=== PATIENT | male | born 1985 | race Caucasian/White ===

== ENCOUNTER 2017-06-12 13:56 | Emergency (ER) | payer OTHER ==
[2017-06-12 15:53] VITALS: BP 133/74
--- NOTE | 2017-06-12 16:01 | ED ---
Back Pain - HPI Summary HPI Summary: Patient presents to the ED with right-sided sciatic pain since last week. He was seen by his primary care physician who prescribed him 5 days prednisone and methocarbamol 4 times daily. He denies any improvement of symptoms. Pain radiates down the posterior right leg with numbness and tingling. Denies any bladder or bowel dysfunction. He has had a similar episode several years ago after overuse of rowing. He has not tried any heat or massage. He does not have any other back problems at baseline. He is otherwise healthy and is very active. Friend at baseline. Denies any fevers, sweats, chills. Pain is aggravated by sitting and alleviated with standing. - History of Current Complaint Chief Complaint: EDBackInjuryPain Stated Complaint: LOW BACK PAIN Time Seen by Provider: 06/12/17 14:28 Hx Obtained From: Patient Onset/Duration: Sudden Onset Onset/Duration: Started Hours Ago Timing: Constant Back Pain Location: Is Discrete @ - Right-sided sciatic nerve Severity Initially: Moderate Severity Currently: Moderate Pain Intensity: 5 Pain Scale Used: 0-10 Numeric Character: Aching Aggravating Symptom(s): Movement Alleviating Symptom(s): Rest, Position, Heat - Risk Factors AAA Risk Factors: Negative TAD Risk Factors: Negative - She is okay I asked her if she wanted them she wanted a liter of Cauda Equina Risk Factors: Negative Epidural Abscess Risk Factors: Negative - Allergies/Home Medications Allergies/Adverse Reactions: Allergies Allergy/AdvReac Type Severity Reaction Status Date / Time Bee Venom Allergy Swelling Verified 06/12/17 14:05 PMH/Surg Hx/FS Hx/Imm Hx Previously Healthy: Yes Endocrine/Hematology History: Denies: Hx Diabetes Cardiovascular History: Denies: Hx Hypertension, Hx Pacemaker/ICD History: Denies: Hx Renal Disease Sensory History: Denies: Hx Hearing Aid Psychiatric History: Denies: Hx Panic Disorder - Surgical History Surgery Procedure, Year, and Place: RIGHT FOREARM/WRIST REPAIRED 07/2012. RIGHT SCAPHOID REPAIR 2005. HERNIA REPAIR 1991. TONSILS 2003 - Immunization History Immunizations Up to Date: Yes Infectious Disease History: No Infectious Disease History: Denies: Traveled Outside the [place] in Last 30 Days - Social History Occupation: Employed Full-time Lives: With Family Alcohol Use: Weekly Alcohol Amount: 6 Hx Substance Use: No Substance Use Type: Reports: None Hx Tobacco Use: No Smoking Status (MU): Never Smoked Tobacco Review of Systems Constitutional: Negative Positive: Fever, Chills, Fatigue Eyes: Negative Cardiovascular: Negative Respiratory: Negative Positive: no symptoms reported, see HPI Positive: Arthralgia, Myalgia Skin: Negative Psychological: Normal All Other Systems Reviewed And Are Negative: Yes Physical Exam Triage Information Reviewed: Yes Vital Signs On Initial Exam: Initial Vitals Temp Pulse Resp BP Pulse Ox 97.5 F 57 16 123/73 98 06/12/17 14:05 06/12/17 14:05 06/12/17 14:05 06/12/17 14:05 06/12/17 14:05 Vital Signs Reviewed: Yes Appearance: Positive: Well-Appearing, Well-Nourished Skin: Positive: Skin Color Reflects Adequate Perfusion Head/Face: Positive: Normal Head/Face Inspection Eyes: Positive: EOMI, BJ, Conjunctiva Clear Respiratory/Lung Sounds: Positive: Clear to Auscultation, Breath Sounds Present Cardiovascular: Positive: RRR, Pulses are Symmetrical in both Upper and Lower Extremities Musculoskeletal: Positive: Strength/ROM Intact. Negative: Edema Left, Edema Right Neurological: Positive: Speech Normal Psychiatric: Positive: Normal, Affect/Mood Appropriate Diagnostics - Vital Signs Vital Signs Temp Pulse Resp BP Pulse Ox 06/12/17 15:41 98.6 F 55 16 133/74 92 06/12/17 14:05 97.5 F 57 16 123/73 98 - Laboratory Lab Statement: Any lab studies that have been ordered have been reviewed, and results considered in the medical decision making process. Back Pain Course/Dx - Course Course Of Treatment: During the course of treatment the patient is evaluated for acute right-sided low back pain. The pain is discretely located over the sciatic joint and radiates numbness and tingling down the posterior right leg. Denies any bladder or bowel dysfunction he is otherwise healthy and denies any fevers. There is no pain directly on the spine cervical thoracic or lumbar. He has never had any low back problems in the past. I do not believe a CT is required at this time. He will be treated with Flexeril, pain control, and gabapentin. He was previously treated with methocarbamol and steroids. He states the methocarbamol has a reaction of dizziness and would like to try something else. He states he has had hydrocodone in the past but it has not helped him. I have discussed tramadol as an alternative. He would like to try the hydrocodone, but if he finds no improvement he will call and we are able to switch the pain medication to tramadol given he return the proper amount back to the pharmacy. Patient and family member made aware of this agreement. He is encouraged ibuprofen, massage, and moist heat to the area. Low back exercises given. I have encouraged him to use a tennis ball to the area and if symptoms become worse he can always come back to the ED. He will follow up with PCP next week as scheduled. - Diagnoses Provider Diagnoses: Sciatica Discharge - Discharge Plan Condition: Stable Disposition: HOME Prescriptions: Cyclobenzaprine TAB* [Flexeril TAB*] 10 mg PO BID PRN #16 tab PRN Reason: Pain Gabapentin CAP(*) [Neurontin 300 CAP(*)] 300 mg PO BEDTIME #10 cap Hydrocodone/Acetamin 10/325(NF [Caspar 10/325 (NF)] 1 tab PO Q6H #24 tab MDD 4 Patient Education Materials: Sciatica (ED), Lumbar Radiculopathy (ED), Piriformis Syndrome (ED), Lower Back Exercises (ED) Referrals: [facility] ELLIOTT [Primary Care Provider] - Additional Instructions: Ibuprofen 600 mg 3 times daily Back exercises gently 2-3 times per day Moist heat to the area several times per day and massage Gabapentin 300 mg at bedtime Hydrocodone acetaminophen pain medication up to 4 times daily as needed for pain Do not drive on this medication Do not work on this medication until you know how it affects U Flexeril twice daily as needed for any muscle spasms Follow-up with your PCP as scheduled, or next week for further evaluation and/ or referral
== END 2017-06-12 15:41 | disposition home or self-care (01) ==
LOC: ED 13:56
DX: M54.31 Sciatica, right side (principal)
CPT/HCPCS: 99281

== ENCOUNTER 2018-03-08 14:05 | Emergency (ER) | payer OTHER ==
[2018-03-08 14:41] VITALS: BP 129/72
--- NOTE | 2018-03-08 15:27 | UC ---
Back Pain HPI - HPI Summary HPI Summary: Patient with a history of chronic low back pain reports 2 days of worsening pain in the right low back radiating down his right leg. No saddle anesthesia or loss of bowel or bladder control. Pain is worse with transitioning from sitting to standing and going up stairs. Has been taking gabapentin and cyclobenzaprine without much relief. Ibuprofen does help. Last episode of pain this severe was back in May of this year. Usually he has some mild pain that he manages with [id number] ibuprofen. He does PT exercises routinely but admits that he has not been keeping up with these recently and did go for a long bike ride prior to onset of his recent symptoms. He called [facility] and was given an appointment in the first week of March. States he is looking for assistance with pain mgmt as he will be traveling to [place] in 2 days. - History of Current Complaint Chief Complaint: UCBackPain Stated Complaint: LOWER BACK PAIN DOWN LEG Time Seen by Provider: 03/08/18 14:58 Hx Obtained From: Patient Onset/Duration: Sudden Onset, Lasting Days, Still Present Timing: Constant Severity Initially: Moderate Severity Currently: Moderate Pain Intensity: 4 Pain Scale Used: 0-10 Numeric Back Pain: Is Discrete @ - RIGHT LOW BACK Character: Sharp, Aching Aggravating Factor(s): Movement Alleviating Factor(s): Rest Associated Signs And Symptoms: Positive: Tingling. Negative: Swelling, Redness , Bruising, Bladder Incontinence, Bowel Incontinence - Allergies/Home Medications Allergies/Adverse Reactions: Allergies Allergy/AdvReac Type Severity Reaction Status Date / Time bee venom protein (honey bee) Allergy Swelling Verified 03/08/18 14:33 Home Medications: Home Medications Gabapentin CAP(*) [Neurontin 300 CAP(*)] 600 mg PO BEDTIME 03/08/18 [History] Ibuprofen 800 mg PO Q8HR PRN 03/08/18 [History Confirmed 03/08/18] PMH/Surg Hx/FS Hx/Imm Hx - Additional Past Medical History Additional PMH: CHRONIC BACK PAIN - Surgical History Surgical History: Yes Surgery Procedure, Year, and Place: RIGHT FOREARM/WRIST REPAIRED 07/2012. RIGHT SCAPHOID REPAIR 2005. HERNIA REPAIR 1991. TONSILS 2003 - Family History Known Family History: Negative: Hypertension - Social History Alcohol Use: Weekly Alcohol Amount: 6 Substance Use Type: None Smoking Status (MU): Never Smoked Tobacco Review of Systems Constitutional: Negative Skin: Negative Respiratory: Negative Cardiovascular: Negative Gastrointestinal: Negative Musculoskeletal: Arthralgia, Decreased ROM, Myalgia Neurological: Paresthesia All Other Systems Reviewed And Are Negative: Yes Physical Exam Triage Information Reviewed: Yes Appearance: Well-Appearing, Well-Nourished, Pain Distress - MODERATE Vital Signs: Initial Vital Signs Temp 98.9 F 03/08/18 14:35 Pulse 60 03/08/18 14:35 Resp 18 03/08/18 14:35 BP 129/72 03/08/18 14:35 Pulse Ox 99 03/08/18 14:35 Vital Signs Reviewed: Yes Eyes: Positive: Conjunctiva Clear ENT: Positive: Hearing grossly normal Neck: Positive: Supple Respiratory: Positive: No respiratory distress, No accessory muscle use Cardiovascular: Positive: Pulses Normal Abdomen Description: Positive: Soft Musculoskeletal: Positive: No Edema, ROM Limited @ - BACK, Other: - NO TENDERNESS OVER PARASPINOUS MUSCLES OR VERTEBRAE. Neurological: Positive: Alert Psychological: Positive: Age Appropriate Behavior Skin: Negative: rashes Back Pain Course/Dx - Differential Dx/Diagnosis Provider Diagnoses: ACUTE ON CHRONIC LOW BACK PAIN Discharge - Sign-Out/Discharge Documenting (check all that apply): Patient Departure All imaging exams completed and their final reports reviewed: No Studies - Discharge Plan Condition: Stable Disposition: HOME Prescriptions: HYDROcodone/ACETAMIN 5-325 MG* [Ponce 5-325 TAB*] 1 tab PO Q6H PRN #20 tab MDD 4 PRN Reason: Pain predniSONE TAB* [Deltasone 20 MG TAB*] 40 mg PO DAILY #10 tab Patient Education Materials: Lumbar Radiculopathy (ED), Chronic Back Pain (DC) [facility] (KEEP YOUR APPT IN MARCH) Additional Instructions: BE SURE TO GO THROUGH SLOW RANGE OF MOTION AND STRETCHING EXERCISES DAILY YOU ARE ABLE TO PREVENT STIFFENING UP AND MAKING THE DISCOMFORT WORSE. GO TO THE ED WITHOUT FAIL IF YOU DEVELOP WORSENING NUMBNESS/TINGLING IN YOUR LEGS, NUMBNESS IN THE GENITAL REGION, LOSS OF BOWEL/BLADDER CONTROL, INTOLERABLE PAIN OR ANY OTHER CONCERNING SYMPTOMS. [facility] [address] [place], [place] [id number] - Billing Disposition and Condition Condition: STABLE Disposition: Home
== END 2018-03-08 15:40 | disposition home or self-care (01) ==
LOC: UCEAST 14:05
DX: M54.5 Low back pain (principal); R20.2 Paresthesia of skin; Z91.030 Bee allergy status
CPT/HCPCS: 99212; G0463